=== PATIENT | male | born 1960 | race African-American/Black ===

== ENCOUNTER 2016-10-13 17:13 | Emergency (ER) | payer BC | END 2016-10-13 21:49 | disposition home or self-care (01) | LOC: ER 17:13 | PROC: 0H9GXZZ Drainage of Left Hand Skin, External Approach (ICD-10-PCS; principal; 2016-10-13) | DX: S69.92XA Unspecified injury of left wrist, hand and finger(s), initial encounter (principal); I10 Essential (primary) hypertension; X58.XXXA Exposure to other specified factors, initial encounter | CPT/HCPCS: 73130-LT; 99283 ==